=== PATIENT | female | born 1985 | race African-American/Black ===

== ENCOUNTER 2018-07-24 10:08 | Emergency (ER) | payer MEDICAID ==
[~2018-07-24] VITALS: Ht 152.4 cm; Wt 58.1 kg
[2018-07-24 11:00] VITALS: BP 124/82
== END 2018-07-24 11:30 | disposition home or self-care (01) ==
LOC: ED 11:19
DX: J20.9 Acute bronchitis, unspecified (principal); B96.89 Other specified bacterial agents as the cause of diseases classified elsewhere; J01.90 Acute sinusitis, unspecified; F17.200 Nicotine dependence, unspecified, uncomplicated
CPT/HCPCS: 99283

== ENCOUNTER 2019-03-13 22:38 | Emergency (ER) | payer MEDICAID ==
[~2019-03-13] VITALS: Ht 152.4 cm; Wt 61.3 kg
[2019-03-13 22:50] VITALS: BP 114/75
--- NOTE | 2019-03-13 23:42 | NUR ---
Lab at bedside. Pelvic cart at bedside.
--- NOTE | 2019-03-13 23:46 | NUR ---
Pt moved to gynnie bed for pelvic exam.
[2019-03-14] LABS: BASOPHILS # (AUTO) 0.06 x10^3/uL (0-0.1); BASOPHILS % (AUTO) 1 % (0-1); EOSINOPHILS # (AUTO) 0.17 x10^3/uL (0-0.4); EOSINOPHILS % (AUTO) 3 % (1-7); LYMPHOCYTES # (AUTO) 2.46 x10^3/uL (1-3.4); LYMPHOCYTES % (AUTO) 41 % (22-44); MD NO; MEAN CORPUSCULAR HEMOGLOBIN 33.6 pg (27.0-34.8); MEAN CORPUSCULAR HGB CONC 33.5 g/dL (32.4-35.8); MEAN CORPUSCULAR VOLUME 100.4 fL (80-100); MEAN PLATELET VOLUME 7.6 fL (7.4-10.4); MONOCYTES # (AUTO) 0.71 x10^3/uL (0.2-0.8); MONOCYTES % (AUTO) 12 % (2-9); NEUTROPHILS # (AUTO) 2.55 x10^3/uL (1.8-6.8); NEUTROPHILS % (AUTO) 43 % (42-75); PLATELET COUNT 204 x10^3/uL (130-400); RED BLOOD COUNT 3.93 x10^6/uL (3.82-5.3); RED CELL DISTRIBUTION WIDTH 13.6 % (9.6-15.2)
[2019-03-14 00:05] LABS: ALANINE AMINOTRANSFERASE 25 U/L (12-78); ALBUMIN 3.6 g/dL (3.4-5.0); ANION GAP 5 mmol/L (5-15); CALCIUM 8.3 mg/dL (8.5-10.1); CHLORIDE 109 mmol/L (98-107); CREATININE 1.06 mg/dL (0.55-1.02)
[2019-03-14 00:09] LABS: ALKALINE PHOSPHATASE 49 U/L (45-117); BILIRUBIN,TOTAL < 0.1 mg/dL (0.2-1.0); TOTAL PROTEIN 6.8 g/dL (6.4-8.2)
[2019-03-14 00:59] LABS: CLUE CELLS NONE SEEN (NONE SEEN)
[2019-03-14 01:00] LABS: WET PREP WBCS FEW (FEW)
[2019-03-14] MEDS ORDERED: CEFTRIAXONE 250 MG IM ONE (01:00)
[2019-03-14] MEDS ORDERED: AZITHROMYCIN 500 MG TABLET PO ONE (01:00)
[2019-03-14] MEDS ORDERED: IBUPROFEN 200 MG TABLET PO ONE (01:00)
[2019-03-14] MEDS ORDERED: AZITHROMYCIN 500 MG TABLET ONE (01:03)
[2019-03-14] MEDS ORDERED: LIDOCAINE-MPF 1%, 2ML ONE (01:03)
[2019-03-14] MEDS ORDERED: IBUPROFEN 600 MG TABLET ONE (01:04)
[2019-03-14] MEDS ORDERED: CEFTRIAXONE 250 MG ONE (01:04)
--- NOTE | 2019-03-14 01:10 | NUR ---
Pt medicated per MAR.
--- NOTE | 2019-03-14 01:34 | NUR ---
REPORT RECEIVED FROM RAVEN ZARAGOZA. ASSUMED CARE OF PT.
--- NOTE | 2019-03-14 01:44 | NUR ---
URINE SAMPLE PROVIDED BY PT. COLLECTED AND SENT TO LAB
[2019-03-14 01:53] LABS: MICROSCOPIC NOT IND
[2019-03-14 01:56] LABS: CULTURE INDICATED? NO
--- NOTE | 2019-03-14 02:32 | NUR ---
Patient/Caregiver given discharge instructions and they have confirmed that they understand the instructions. Patient ambulatory with steady gait.
== END 2019-03-14 02:33 | disposition home or self-care (01) ==
LOC: ED 03-14 02:27
DX: R10.30 Lower abdominal pain, unspecified (principal); N89.8 Other specified noninflammatory disorders of vagina; Z20.2 Contact with and (suspected) exposure to infections with a predominantly sexual mode of transmission
CPT/HCPCS: 36415; 80053; 81003; 84703; 85025; 87210; 87491; 87591; 87808; 96372; 99283; J0696